=== PATIENT | male | born 1955 | race Caucasian/White ===

== ENCOUNTER 2020-05-07 09:01 | Observation (INO) ==
[~2020-05-07 09:01] MED LIST: Buffered Lidocaine 1% SYRIN 1 ml INTRADERM ONE; Lactated Ringers 1000 ml BAG 1,000 ML IV SCH
[2020-05-07] MEDS ORDERED: Propofol 10 MG/ML 20 ML BTL ONE (09:26)
[2020-05-07] MEDS ORDERED: Midazolam 2 mg/2 ml VIAL 1 mg/ml 2 ml VIAL (2 mg) ONE (09:26)
[2020-05-07] MEDS ORDERED: Ondansetron 4 mg VIAL 2 MG/ML 2 ml VIAL ONE (09:26)
[2020-05-07] MEDS ORDERED: Dexamethasone IV 4 MG/ML VIAL 1 ml VIAL ONE (09:26)
[2020-05-07] MEDS ORDERED: Acetaminophen IV 1 GM/100ML 100 ML ONE (09:26)
[2020-05-07] MEDS ORDERED: fentaNYL 100 mcg/2 ml 50 MCG/ML VIAL ONE ×2 (09:26→14:10)
[2020-05-07] MEDS ORDERED: ROPIVACAINE 5 MG/ML 30 ML BTL (0.5%) ONE ×2 (09:26→11:05)
[2020-05-07] MEDS ORDERED: Glycopyrrolate IV 0.2 MG/ML 1 ML VIAL ONE (09:26)
[2020-05-07] MEDS ORDERED: ceFAZolin 2 GM PREMIX in ORs 2 GM/50 ML BAG ONE (09:28)
[2020-05-07] MEDS ORDERED: Prochlorperazine 5 mg/ml 2 ml VIAL (10 mg) IV PRN (11:53)
[2020-05-07] MEDS ORDERED: diPHENhydraMINE IV 50 MG/ML 1 ml VIAL (BENADRYL) IV PRN ×2 (11:53→13:39)
[2020-05-07] MEDS ORDERED: Naloxone 0.4 mg VIAL 0.4 mg/ml 1 ml VIAL IV PRN (11:53)
[2020-05-07] MEDS ORDERED: HYDROmorphone 1 MG/1 ML SYRINGE IV PRN (11:53)
[2020-05-07] MEDS ORDERED: Morphine 2 MG/ML SYRINGE IV PRN (13:39)
[2020-05-07] MEDS ORDERED: Lactulose 30 ml UDC PO PRN (13:39)
[2020-05-07] MEDS ORDERED: diPHENhydraMINE 25 mg TAB PO PRN (13:39)
[2020-05-07] MEDS ORDERED: Ondansetron 4 mg VIAL 2 MG/ML 2 ml VIAL IV PRN (13:39)
[2020-05-07] MEDS ORDERED: Ondansetron ODT 4 mg TAB 4 MG TAB PO PRN (13:39)
[2020-05-07] MEDS ORDERED: Magnesium Hydroxide LIQ 30 ML UDC PO PRN (13:39)
[2020-05-07] MEDS ORDERED: Lactated Ringers 1000 ml BAG 1,000 ML IV SCH (14:00)
[2020-05-07] MEDS: fentaNYL 100 mcg/2 ml 50 MCG/ML VIAL IV PRN ×2 (14:23→14:39)
[2020-05-07] MEDS ORDERED: Dextrose 50% Syringe 50 ml 25 GM/50 ML SYRINGE IV PUSH PRN (14:39)
[2020-05-07] MEDS: ceFAZolin 1 GM ADVAN(*) 1 GM in NS 0.9% 50 ML 50 ML IVPB SCH ×2 (16:08→22:13)
[2020-05-07] MEDS: oxyCODONE/Acetamin 5/325 mg TAB PO PRN ×2 (16:57→21:23)
[2020-05-07] MEDS ORDERED: Insulin GLARGINE 100 un/ml (*) 10 ml VIAL SUBCUT SCH ×2 (18:00)
[2020-05-07] MEDS: Insulin LISPRO 100 units/ml(*) SUBCUT SCH ×2 (18:01→21:24)
[2020-05-07] MEDS: Magnesium Hydroxide LIQ 30 ML UDC PO SCH (21:24)
[2020-05-08] MEDS: oxyCODONE/Acetamin 5/325 mg TAB PO PRN ×2 (03:33→08:30)
[2020-05-08 04:54] LABS: Hematocrit 33 % (42-52); Hemoglobin 11.7 g/dL (14.0-18.0); Mean Platelet Volume 7.6 fL (7.4-10.4); Platelet Count 201 10^3/uL (150-450)
[2020-05-08 05:12] LABS: BUN/Creatinine Ratio 15.2 (8-20); Calcium 8.5 mg/dL (8.6-10.3); EGFR African American 51.6 (>60); EGFR Non-African American 42.6 (>60); Potassium 4.6 mmol/L (3.5-5.0)
[2020-05-08] MEDS: ceFAZolin 1 GM ADVAN(*) 1 GM in NS 0.9% 50 ML 50 ML IVPB SCH (05:35)
[2020-05-08 07:49] VITALS: BP 117/50
[2020-05-08] MEDS: Magnesium Hydroxide LIQ 30 ML UDC PO SCH (08:23)
[2020-05-08] MEDS: Insulin LISPRO 100 units/ml(*) SUBCUT SCH (08:24)
[2020-05-08] MEDS ORDERED: CMC:SitaGLIPtin 25mg TAB (NF) 25 MG TAB PO SCH (09:00)
[2020-05-08] MEDS ORDERED: Glimepiride 4 mg TAB (NF) PO SCH (09:00)
[2020-05-08] MEDS ORDERED: Vitamin THERAPEUTIC TAB PO SCH (09:00)
[2020-05-08] MEDS ORDERED: Sitagliptin 50 mg TAB (NF) PO SCH (09:00)
== END 2020-05-08 10:44 | disposition home or self-care (01) ==
LOC: SSU 09:01 → OR 09:01
PROVIDERS: ADMIT Physician Assistant; ATTEND Orthopaedic Surgery Adult Reconstructive Orthopaedic Surgery

== ENCOUNTER 2024-01-10 09:52 | Observation (INO) ==
[2024-01-10 15:41] LABS: ABS Eosinophils 0.2 10^3/uL (0.0-0.5); ABS Lymphocytes 1.8 10^3/uL (1.0-4.8); ABS Monocytes 0.5 10^3/uL (0.0-1.1); ABS Neutrophils 3.3 10^3/uL (1.5-7.6); ABS Nucleated RBC 0.03 10^3/ul; Eosinophil % 3.8 %; Hematocrit 48.5 % (38-53); Hemoglobin 16.7 g/dL (13.2-16.3); Mean Corpuscular Hemoglobin 30.4 pg (27-33); Mean Corpuscular Hgb Conc 34.3 g/dL (31-36); Mean Corpuscular Volume 88.7 fL (80-97); Mean Platelet Volume 6.9 fL (7.5-11.2); Nucleated Red Blood Cells % 0.6 %/100WBC (0.0-0.8); Platelet Count 252 10^3/uL (150-450); Red Blood Count 5.47 10^6/uL (4.06-5.63); Red Cell Distribution Width 14.1 % (12-17); White Blood Count 5.9 10^3/uL (3.6-10.2)
[2024-01-10 15:54] LABS: INR 2.37 (0.83-1.13)
[2024-01-10 16:41] LABS: Albumin 4.9 g/dL (3.2-5.2); Albumin/Globulin Ratio 1.7 (1-3); C Reactive Protein 3.78 mg/L (<8.01); Creatinine, Serum 1.44 mg/dL (0.67-1.17); Globulin 2.9 g/dL (2-4); Potassium 4.4 mmol/L (3.5-5.0); Total Bilirubin 0.8 mg/dL (0.2-1.0); Total Protein 7.8 g/dL (6.4-8.9); eGFR CKD-EPI 53.3 (>60)
[2024-01-10] MEDS: Iodixanol (CONTRAST) 320 MG/ML 100 ML SDV IV ONE (17:30)
[2024-01-10] MEDS: NS 0.9% 1000 ml BAG 1,000 ML IV ONE (20:18)
[2024-01-10] MEDS ORDERED: Dextrose 50% Syringe 50 ml 25 GM/50 ML SYRINGE IV PUSH PRN (21:36)
[2024-01-11] MEDS: NS 0.9% 1000 ml BAG 1,000 ML IV SCH (01:55)
[2024-01-11 06:16] LABS: ABS Eosinophils 0.3 10^3/uL (0.0-0.5); ABS Lymphocytes 1.7 10^3/uL (1.0-4.8); ABS Monocytes 0.5 10^3/uL (0.0-1.1); ABS Neutrophils 3.2 10^3/uL (1.5-7.6); Eosinophil % 4.5 %; Hematocrit 42.8 % (38-53); Hemoglobin 14.9 g/dL (13.2-16.3); Lymphocyte % 29.4 %; Mean Corpuscular Hemoglobin 30.5 pg (27-33); Mean Corpuscular Hgb Conc 34.7 g/dL (31-36); Mean Corpuscular Volume 87.9 fL (80-97); Mean Platelet Volume 7.1 fL (7.5-11.2); Nucleated Red Blood Cells % 0.1 %/100WBC (0.0-0.8); Platelet Count 208 10^3/uL (150-450); Red Blood Count 4.87 10^6/uL (4.06-5.63); Red Cell Distribution Width 14.1 % (12-17); White Blood Count 5.7 10^3/uL (3.6-10.2)
[2024-01-11 06:18] LABS: INR 2.75 (0.83-1.13)
[2024-01-11 06:30] LABS: Calcium 8.6 mg/dL (8.6-10.3); Creatinine, Serum 1.42 mg/dL (0.67-1.17); Magnesium 1.6 mg/dL (1.9-2.7); Potassium 4.1 mmol/L (3.5-5.0); eGFR CKD-EPI 54.2 (>60)
[2024-01-11 10:56] VITALS: BP 120/64
== END 2024-01-11 12:50 | disposition home or self-care (01) ==
LOC: ED 09:52 → EDHOLD 09:52 → SUATTDRO 20:31 → SSU 01-11 02:26
PROVIDERS: ADMIT Internal Medicine; ATTEND Student in an Organized Health Care Education/Training Program